=== PATIENT | female | born 1995 | race Caucasian/White ===

== ENCOUNTER 2023-01-18 21:17 | Emergency (ER) | payer OTHER ==
[2023-01-18] MEDS ORDERED: Ondansetron 4 MG Tab.DIS PO STA (21:57)
[2023-01-18] MEDS ORDERED: Meclizine 25 MG Tab PO ONE (21:57)
[2023-01-18] MEDS ORDERED: Ibuprofen 800 MG Tab PO ONE (21:59)
[2023-01-18] MEDS ORDERED: Acetaminophen 500 MG Tab PO ONE (21:59)
== END 2023-01-19 00:17 | disposition home or self-care (01) ==
LOC: FB.ED 21:17
DX: S06.0X0A Concussion without loss of consciousness, initial encounter (principal); W22.09XA Striking against other stationary object, initial encounter; Y99.0 Civilian activity done for income or pay
CPT/HCPCS: 70450; 99000; 99282; 99283; A9270-GY; Q0162

== ENCOUNTER 2024-01-06 06:52 | Day surgery (SDC) | payer BC, OTHER ==
[~2024-01-06 06:52] MED LIST: Sodium Chloride 0.9% 10 ML Syringe FLUSH PRN
[2024-01-06] MEDS ORDERED: Propofol 200 MG/20 ML SDV IV ONE (06:53)
[2024-01-06] MEDS ORDERED: Lidocaine 2% 100 MG/5 ML Syringe IVPUSH ONE (06:53)
[2024-01-06] MEDS: Lactated Ringers 1,000 ML IV SCH (07:40)
[2024-01-06] MEDS: Simethicone Drops 40 MG/0.6 ML 30 ML Bottle PO ONE (08:25)
== END 2024-01-06 10:08 | disposition home or self-care (01) ==
LOC: FB.SDS 06:52
PROVIDERS: ATTEND Surgery
DX: K63.5 Polyp of colon (principal); K64.4 Residual hemorrhoidal skin tags; F32.A Depression, unspecified; F41.9 Anxiety disorder, unspecified
CPT/HCPCS: 00811; 45384; 45385; 88305; A9270; J2704; J7120

== ENCOUNTER 2025-07-14 17:05 | Emergency (ER) | payer BC ==
[2025-07-14] MEDS: Acetaminophen/oxyCODONE 325-5 MG Tab PO STA (17:36)
[2025-07-14] MEDS: Ketorolac 30 MG/ML SDV IM STA (17:38)
== END 2025-07-14 19:31 | disposition home or self-care (01) ==
LOC: FB.ED 17:05
DX: M62.830 Muscle spasm of back (principal); Z79.899 Other long term (current) drug therapy
CPT/HCPCS: 72040; 72070; 72100; 96372; 99283; A9270; J1885